=== PATIENT | male | born 1985 | race Caucasian/White ===

== ENCOUNTER 2017-11-29 06:52 | Emergency (ER) | payer OTHER ==
[2017-11-29 06:57] VITALS: BP 148/85; BMI 33.4
--- NOTE | 2017-11-29 07:43 | DR.GENAD ---
HPI - PCP Primary Care Physician: NATALIE - Complaint/Symptoms Chief Complaint Doctors Comments: Patient states he got a new tatoo on his left arm four days ago and now he has redness and swelling around the tatoo and he is worried that it maybe getting infected. States it took him 4 1/2 hours for him to complete the tatoo and he did it all in one setting. states he is taking testosterone and they told him that it may make his wounds heal faster. He denies fever, chills, cold or cough. States his last tetanus was within the last five years. States he goes to a doctor in [place]. He has multiple tatoos but this one has a lot more ink than the others. states he has taken clindymycin before without problems. States he is able to move his left arm and fingers without pain or problems. Chief Complaint:: PT C/O REDNESS, SWELLING, AND PAIN TO LT ARM. PT STATES HE GOT A NEW TATOO THIS FRIDAY AND NOW HE IS HAVING REDNESS AND SWELLING. PT STATES EARLY FRIDAY AM IS WHEN THE REDNESS AND SWELLING. - Nurses notes reviewed Nurses Notes Review: Yes - Source History Provided: Patient - Mode of Arrival Mode of Arrival: Ambulatory - Timing Onset of Chief Complaint: 11/27/17 Came on: Gradually - Duration Duration: Constant How lon Duration: Days - Location Location: left upper arm and deltoid - Severity Severity: Mild - Modifying Factors Worsens:: nothing Improves:: nothing PMH - PMH Past Medical History: No Past Surgical History: No - Family History History of Family Medical Conditions: Yes Family Medical History: Diabetes Mellitus, Hypertension - Social History Does any household member use tobacco: No Alcohol Use: None Do you use any recreational Drugs:: No Lives With: Alone Lives Where: Home - infectious screening In the last 2 months have you had wt loss of >10#?: NO Have you had fever, night sweats or hemotysis?: No Have you traveled outside the country in the last 6 months?: No Isolation: Standard ROS - Review of Systems Constitutional: No Symptoms Reported. negative: See HPI, Chills, Diaphoresis, Fever, Malaise, Weakness, Irritable, Fatigue, Loss of Appetite, Other Eyes: No Symptoms Reported. negative: See HPI, Eye Pain, Blurred Vision, Tearing, Discharge, Photophobia, Diplopia, Other ENTM: No Symptoms Reported Respiratoy: No Symptoms Reported. negative: See HPI, Productive Cough, Non- Productive Cough, Moist Cough, Dry Cough, Hacking Cough, Barking Cough, Brassy Cough, Orthopnea, Short of Breath, Stridor, Wheezing, Hemoptysis, Other Cardiovascular: No Symptoms Reported. negative: See HPI, Chest Pain, Edema, Palpitations, Syncope, Cyanosis, Skin Mottling, Other Gastrointestinal/Abdominal: No Symptoms Reported Genitourinary: No Symptoms Reported. negative: See HPI, Discharge, Dysuria, Frequency, Hematuria, Pain, Bleeding, Other Neurological: No Symptoms Reported Musculoskeletal: No Symptoms Reported, Left, Arm (large tatoo with slight erythema on arm) Integumentary: No Symptoms Reported, Change in Color. negative: See HPI, Change in Hair/Nails, Dryness, Lesions, Lumps, Rash, Itching, Wound, Bruises, Juandice, Other Hematologic/Lymphatic: No Symptoms Reported. negative: See HPI, Anemia, Blood Clots, Easy Bleeding, Easy Bruising, Swollen Glands, Lymphadenopathy, Other Endocrine: No Symptoms Reported. negative: See HPI, Excessive Sweating, Flushing, Intolerance to Cold, Intolerance to Heat, Increased Hunger, Increased Thirst, Increased Urine, Unexplained Weight Gain, Unexplained Weight Loss, Failure to Thrive, Decreased Appetite, Other Psychiatric: No Symptoms Reported. negative: See HPI, Anxiety, Depression, Hallucinations, Excessive crying, Suicidal, Other PE - Vital Signs Vitals: Temperature 97.3 F Pulse Rate 86 Respiratory Rate 20 Blood Pressure 148/85 O2 Sat by Pulse Oximetry 97 - General Limitations: No Limitations General Appearance: Alert, In No Apparent Distress - Head Head Exam: Normal Inspection, Atraumatic, Normocephalic - Eyes Eye exam: Normal Appearance, PERRL, EOMI. negative: Scleral Icterus, Conjunctival Injection, Nystagmus, Miosis, Mydrasis, Periorbital Swelling, Periorbital Tenderness, Other - ENT ENT Exam: Normal Exam, Normal Oropharynx, Normal External Ear Exam, Mucous Membranes Moist, TM's Normal Bilaterally External Ear Exam: Normal External Inspection TM/Canal Exam: Bilateral Normal Nose Exam: Normal Nose Exam Mouth Exam: Normal Inspection Throat Exam: Normal Inspection - Neck Neck Exam: Normal Inspection, Full ROM, Trachea Midline. negative: Tenderness, Meningismus, Lymphadenopathy, Thyromegaly, Other - Chest Chest Inspection: Normal Inspection, Symmetric Chest Wall Rise - Respiratory Respiratory Exam: Normal Lung Sounds Bilat Respiratory Exam: Bilateral Clear to Auscultation - Cardiovascular Cardiovascular Exam: Regular Rate, Normal Rhythm, Normal Heart Sounds. negative : Bradycardia, Tachycardia, Irregular Rhythm, Systolic Murmur, Diastolic Murmur , Rubs, Gallop, Clicks, JVD, +S1, +S2, +S3, +S4, Other - Abdominal Exam Abdominal Exam: Normal Inspection, Normal Bowel Sounds, Soft Abdominal Tenderness: negative: RUQ, RLQ, LUQ, LLQ, Epigastrium, Suprapubic, Diffuse, Mild, Moderate, Severe, Other - Extremities Extremities Exam: Normal Inspection, Full ROM, Normal Capillary Refill. negative: Tenderness, Edema (left arm with a large tatoo of mariam head with multiple colors with slight erythema along border of ink; no discharge), Joint Swelling, Calf Tenderness - Back Back Exam: Normal Inspection, Full ROM. negative: Tenderness, (R) CVA Tenderness, (L) CVA Tenderness, Muscle Spasm, Paraspinal Tenderness, Vertebral Tenderness, Rashes, (R) Sciatic Notch Tenderness, (L) Sciatic Notch Tendern, (R ) Straight Leg Raise, (L) Straight Leg Raise, Other - Neurologic Neurological Exam: Alert, Oriented X3, CN II-XII Intact, Normal Gait, Reflexes Normal - Psychiatric Psychiatric Exam: Normal Affect, Normal Mood. negative: Depressed, Agitated, Anxious, Flat Affect, Manic, Homicidal Ideation, Suicidal Ideation, Other - Skin Skin Exam: Warm, Dry, Intact, Erythema (slight erythema left upper arm along border tattoo). negative: Normal Color, Rash, Cyanosis, Diaphoresis, Pallor, Mottled, Other - Diagnosis Discharge Problem: early cellulitis left arm, Tattoo reaction - Discharge Plan Disposition: 01 HOME, SELF-CARE Condition: Stable Prescriptions: Erythromycin Ethylsuccinate [E.E.S. 400 mg tab] 400 mg PO TID #21 tab - Follow ups/Referrals Follow ups/Referrals: Laci ESTRADA [Primary Care Provider] - 3 days - Instructions Instructions: Cellulitis, Adult, [id number]
== END 2017-11-29 07:57 | disposition home or self-care (01) ==
LOC: ER 07:04
DX: L03.114 Cellulitis of left upper limb (principal); T78.49XA Other allergy, initial encounter
CPT/HCPCS: 99282